=== PATIENT | male | born 1975 | race Caucasian/White ===

== ENCOUNTER 2020-05-27 16:24 | Emergency (ER) | payer BC, SELFPAY ==
--- NOTE | ~2020-05-27 | XR_ITS ---
XR elbow RT min 3V DATE: 05/27/2020 16:53 INDICATION: Right elbow pain. No known injury. TECHNIQUE: 4 views COMPARISON: None FINDINGS: No fracture or dislocation or joint effusion. No periosteal reaction or bone destruction. IMPRESSION: Negative Reviewed, dictated and finalized at location B. IMPRESSION: Negative
[2020-05-27 16:30] VITALS: BP 167/100; PULSE 85; RESP 20; TEMP 36.6; O2SAT 99
--- NOTE | 2020-05-27 16:42 | ED.GENADULT ---
HPI - General Adult General Chief complaint: Extremity Injury, Upper Stated complaint: rt elbow pain Time Seen by Provider: 05/27/20 16:42 Source: patient Mode of arrival: ambulatory Limitations: no limitations History of Present Illness HPI narrative: 44-year-old male patient presents to the [facility] with complaints of right elbow pain for the past 2 weeks. Patient states he does not remember any specific injury to the elbow but states that he has been doing a lot of pushing pulling exercises at home including push mowing the grass, turning the wheel on the lawn more, shifting the van and using a mouse daily that seems to aggravate the right elbow. 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 Patient states he has taken ibuprofen a couple of times as well as iced it to help with the pain at times. Patient states he thought it would have gone away by now and is concerned because he continues to have pain. Related Data Allergies Allergy/AdvReac Type Severity Reaction Status Date / Time amoxicillin [From Amoxil] AdvReac Mild Rash Verified 05/27/20 16:40 Review of Systems Review of Systems: Narrative: CONSTITUTIONAL: Denies fever, chills, or sweats. EYES: Denies visual changes, redness, or discharge. ENT: Denies rhinorrhea, congestion, sore throat, or otalgia. CARDIOVASCULAR: Denies chest pain, palpitations, or edema. RESPIRATORY: Denies cough or dyspnea. GASTROINTESTINAL: Denies abdominal pain, nausea, vomiting, or diarrhea. GENITOURINARY: Denies dysuria or hematuria. SKIN: Denies rash or itching. MUSCULOSKELETAL: Denies back pain, joint pain, or myalgia. Positive right elbow pain x2 weeks NEUROLOGIC: Denies headache, numbness, or weakness. PSYCHIATRIC: Denies anxiety or depression. [facility] Past Medical History Medical History Hernia Obesity Vertigo Surgical History Surgical History History of adenoidectomy Hx of tympanostomy tubes No pertinent past surgical history Family History Family History Father Family history of liver disease Family history of hepatitis Social History Social History (Reviewed 05/27/20 @ 16:42 by GABRIEL Oconnor Smoking status: Never smoker Second hand tobacco smoke exposure: No Smoking end date: 08/30/02 Alcohol intake: current Substance use: never Substance use type: does not use Gender identity (if verbalized by the patient): Male Comments At the time of my signature I agree with nursing past medical history, surgical, social, and family history. There is no relevant family history pertinent to the presenting complaint. Exam Narrative: Exam Narrative: GENERAL: Well-appearing, well-nourished, and in no acute distress. HEAD: Normocephalic, atraumatic. EYES: PERRLA and EOMI. ENT: Nares clear, no rhinorrhea or epistaxis. Mucous membranes moist. NECK: Supple. No lymphadenopathy CHEST: Clear to auscultation. No respiratory distress. HEART: Regular rate and rhythm. No murmur heard. Normal peripheral pulses. ABDOMEN: Soft, nontender, nondistended, normal active bowel sounds. EXTREMITIES: The R elbow is without obvious asymmetry or deformity when compared to the L elbow. No obvious surface trauma, ecchymosis or soft tissue swelling. bony tenderness to palpation of the lateral and medial epicondyle, olecranon, no tenderness over the radial head. No epicondylar or axillary lymphadenopathy. Normal flexion, extension, pain with supination and pronation. Normal muscle strength but does complain of pain with hand grasp to the right elbow. Intact motor and sensation of ulnar, median, and radial nerves. SKIN: Warm, dry, no rash. NEURO: No focal deficits. Alert and oriented x3. Course Reevaluation(s) Reevaluation #1: Reevaluated patient after x-ray had resulted. Discussed with him that his x-ray is negative
== END 2020-05-27 17:04 | disposition home or self-care (01) ==
PROVIDERS: Emergency Provider Nurse Practitioner Family; PCP Family Medicine
DX: M77.9 Enthesopathy, unspecified (principal)
CPT/HCPCS: 73080; 99213; G0463

== ENCOUNTER 2021-02-02 13:07 | Emergency (ER) | payer BC, SELFPAY ==
--- NOTE | ~2021-02-02 | XR_ITS ---
EXAMINATION: XR foot RT min 3V EXAM DATE: 02/02/2021 13:37 INDICATION: Right foot pain laterally, 5th toe, dist 5th metatarsal. Initial encounter. TECHNIQUE: Right foot dorsoplantar, lateral and oblique projections obtained and reviewed. There is no prior study for comparison. FINDINGS: There is acute closed posttraumatic fracture of the right 5th proximal phalanx with about 2 mm displacement. There is overlying soft tissue swelling. 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 IMPRESSION: Right 5th proximal phalangeal shaft fracture. Reviewed, dictated and finalized at location A.
--- NOTE | 2021-02-02 13:15 | ED.LOWEXIN ---
HPI - Extremity Injury (Lower) General Chief Complaint: Extremity Injury, Lower Stated Complaint: INJURED R TOE Time Seen by Provider: 02/02/21 13:15 Source: patient and RN notes reviewed History of Present Illness HPI Narrative: Patient is a 45-year-old male who presents the urgent care with complaints of pain to the right little toe. Patient states that earlier prior to arrival he slammed a cart wheel into his shoe while attempting to stretch his tailgate. Patient states the cart was not full and he was wearing a tennis shoe. Patient states it only hurts when he moves the toe. Denies of any pain to the right foot. Denies of any pain with weightbearing. Patient has used ice to the area but has not taken anything [id number] for his pain. No other acute complaints or injuries. No acute distress noted. Patient aware of the plan of care. Some parts of this dictation were generated by voice recognition software and may contain typographical and/or grammatical inaccuracies. Related Data Home Medications Medication Instructions Recorded Confirmed fluticasone propionate 50 1 spray INTRANASAL DAILY PRN 09/23/20 09/23/20 mcg/actuation nasal spray,suspension Claritin 02/02/21 02/02/21 Allergies Allergy/AdvReac Type Severity Reaction Status Date / Time amoxicillin [From Amoxil] AdvReac Mild Rash Verified 02/02/21 13:27 Review of Systems Review of Systems: Narrative: CONSTITUTIONAL: Denies fever, chills, or sweats. EYES: Denies visual changes, redness, or discharge. ENT: Denies rhinorrhea, congestion, sore throat, or otalgia. CARDIOVASCULAR: Denies chest pain, palpitations, or edema. RESPIRATORY: Denies cough or dyspnea. GASTROINTESTINAL: Denies abdominal pain, nausea, vomiting, or diarrhea. GENITOURINARY: Denies dysuria or hematuria. SKIN: Denies rash or itching. MUSCULOSKELETAL: Reports of pain and bruising to the fifth digit of the right foot NEUROLOGIC: Denies headache, numbness, or weakness. All other systems reviewed are negative, except as documented in HPI. [facility] Past Medical History Medical History Hernia Obesity Seborrheic dermatitis Vertigo Surgical History Surgical History History of adenoidectomy Hx of tympanostomy tubes No pertinent past surgical history Family History Family History Father Family history of liver disease Family history of hepatitis Social History Social History Smoking status: Former smoker (Quit February 2004) Second hand tobacco smoke exposure: No Smoking end date: 08/30/02 Alcohol intake: current Substance use: never Substance use type: does not use Gender identity (if verbalized by the patient): Male Comments At the time of my signature, I reviewed and agree with the nursing past medical, surgical, social, and family history. There is no relevant family history pertinent to the patient complaint. Exam Narrative: Exam Narrative: GENERAL: This is a well-nourished, well-developed patient, in no apparent distress. HEAD: normocephalic, atraumatic. EYES: PERRL. Sclera clear/white. Vision is grossly intact. EARS: External ears normal NOSE: External nose normal with no obvious nasal discharge, nares without redness, no rhinorrhea. THROAT: Mucous membranes moist NECK: Neck supple CARDIOVASCULAR: Regular rate and rhythm without murmurs, gallops, or rubs. RESPIRATORY: Clear to auscultation. Breath sounds equal bilaterally. No wheezes, rales, or rhonchi. SKIN: warm, intact with no suspicious lesions or rash, good texture and turgor. NEURO: awake, alert, and oriented to person, place and time. There were no obvious focal neurologic abnormalities. EXTREMITIES: Mild area of ecchymosis noted to the medial aspect of the fifth digit of the
[2021-02-02 13:24] VITALS: BP 154/88; PULSE 78; RESP 16; TEMP 36.8; O2SAT 98
== END 2021-02-02 13:55 | disposition home or self-care (01) ==
PROVIDERS: Emergency Provider Nurse Practitioner Family
DX: S92.514A Nondisplaced fracture of proximal phalanx of right lesser toe(s), initial encounter for closed fracture (principal); W22.8XXA Striking against or struck by other objects, initial encounter; Z87.891 Personal history of nicotine dependence
CPT/HCPCS: 73630; 99214; G0463

== ENCOUNTER → 2022-06-19 14:36 | Outpatient (CLI) | payer BC, SELFPAY ==
--- NOTE | ~2022-06-19 | XR_ITS ---
EXAMINATION: XR abdomen obstructive series DATE: 06/19/2022 15:11 INDICATION: Abdominal pain TECHNIQUE: Supine and upright views of the abdomen. FINDINGS: No prior studies for comparison. The visualized lung parenchyma is normal.. There is a nonobstructive bowel gas pattern. Gas and stool are seen throughout the colon to the level of the rectum. There is no free air. Moderate colonic fe nazanin loading. IMPRESSION: 1. No acute abdominal abnormality. Reviewed, dictated and finalized at location A.
== END ==
PROVIDERS: PCP Family Medicine; Visit Provider Family Medicine
DX: R10.9 Unspecified abdominal pain (principal)
CPT/HCPCS: 74019

== ENCOUNTER 2022-06-24 06:55 | Outpatient (CLI) | payer BC, SELFPAY ==
--- NOTE | ~2022-06-24 | CT_ITS ---
EXAMINATION: CT abdomen pelvis w con DATE: 06/24/2022 07:19 INDICATION: Upper abdominal discomfort. TECHNIQUE: Computed tomography (CT) of the abdomen and pelvis was performed with 100 mL Omnipaque 350 intravenous contrast. Automated exposure control and iterative reconstruction technique were employe d. The dose-length product was 727.97 mGy-cm. COMPARISON: None. FINDINGS: The visualized portions of the bases are clear without pneumonia or pleural effusion. The h eart size is normal. No pericardial effusion. The liver, gallbladder, spleen, pancreas, adrenal gland s, and kidneys are normal. The prostate is mildly enlarged. There are no dilated loops of bowel. The appendix is normal. There are no pathologically enlarged lymph nodes. There is no free intraperitonea l fluid. There is mild thoracolumbar spondylosis. IMPRESSION: 1. No etiology for the patient's symptoms. Reviewed, dictated and finalized at location A.
== END 2022-06-24 06:56 | disposition home or self-care (01) ==
PROVIDERS: PCP Family Medicine; Visit Provider Family Medicine
DX: R10.9 Unspecified abdominal pain (principal)
CPT/HCPCS: 74177; Q9967

== ENCOUNTER 2023-01-06 06:47 | Day surgery (SDC) | payer BC, SELFPAY ==
[2022-12-16 08:56] VITALS: BMI 29.6
[2023-01-06 10:20] VITALS: BP 114/88; PULSE 70; RESP 16; TEMP 36.6; O2SAT 100; BMI 29.9
[2023-01-06] MEDS: LACTATED RINGERS 1,000 ML 150 ML IV CONT (10:34)
--- NOTE | 2023-01-06 11:06 | WPDANESEPPF ---
Anes - Initial Pre Proc Eval Procedure: Operation Date: 01/06/23 11:30 Proposed Procedures p Screening Colonoscopy - Hai Lux MD Date/Time: 01/06/23 11:06 Surgeon: Hai Lux MD Pre Op Diagnosis: neoplasm screening Patient Data Age: 47 Gender: M Height: 1.75 m Weight: 92 kg Last Vital Signs Temp 97.9 F 01/06/23 10:20 Pulse 70 01/06/23 10:20 Resp 16 01/06/23 10:20 BP 114/88 01/06/23 10:20 Pulse Ox 100 01/06/23 10:20 O2 Del Method Room Air 01/06/23 10:20 Allergies Allergy/AdvReac Type Severity Reaction Status Date / Time No Known Allergies Allergy Verified 01/06/23 10:18 Home Medications Medication Instructions Recorded Confirmed Type fluticasone propionate 50 1 spray intranasal DAILY PRN nasal 09/23/20 01/06/23 History mcg/actuation nasal congestion spray,suspension (Allergy Relief (fluticasone)) vitamin B complex (B 1 tablet PO DAILY 09/26/21 01/06/23 History Complex-Vitamin B12 tablet) cetirizine 10 mg tablet (Zyrtec) 10 mg PO DAILY PRN Allergic 09/30/22 01/06/23 History Symptoms cholecalciferol (vitamin D3) 25 50 mcg PO DAILY 09/30/22 01/06/23 History mcg (1,000 unit) capsule Patient hx anesthesia problems: none Family hx anesthesia problems: none Results Review: All pre-operative results and documents have been reviewed as part of the pre-operative evaluation. [facility] Past Medical History Medical History Hallux rigidus of right foot Hernia Obesity Plantar fasciitis, right Seborrheic dermatitis Toe fracture, right Vertigo Vision changes Surgical History Surgical History History of adenoidectomy Hx of tympanostomy tubes No pertinent past surgical history Family History Family History Father Family history of liver disease Family history of hepatitis Type 2 diabetes mellitus Trigeminal neuralgia Mother Hypertension Grandparent Arteriosclerosis Dementia Grandparent ALS (amyotrophic lateral sclerosis) Social History Social History (Updated 09/30/22 @ 08:36 by Maribell Queen [facility]) Smoking status: Former smoker Tobacco type: cigarettes Second hand tobacco smoke exposure: No Additional smoking assessment comments: Quit smoking 02/2004 Alcohol intake: current Alcohol use details: socially, weekends Substance use: never Substance use type: does not use Lack of Transportation: No Lack of Food: Never True Current Housing: I Have Housing Concerned About Future Housing: No Difficulty Paying Gas/Electric Bills: No Difficulty Paying for Meds: No Currently Unemployed: No Education: Bachelor's Degree Difficulty w/ Childcare or Family Care: No Living arrangements: with family Occupation/Education: occupation Additional occupation/education comments: P[employer] at [employer]. Gender identity (if verbalized by the patient): Male Spiritual care concerns: No Anes - Eval Final PreProcedure Day of Procedure 01/06/23 11:06 Patient weight: obese Heart: regular rate and rhythm Lungs: clear to auscultation Airway: Mallampati scale class II Neurological: alert and oriented Last oral intake: >/= 8 hours ASA classification: II Emergent: no Anesthetic plan: proceed Anesthesia type and monitoring: general GIVS and standard monitoring Results Review: All pre-operative results and documents have been reviewed as part of the pre-operative evaluation. Informed Consent: The patient's anesthetic plan and its attendant risks and benefits were discussed with the patient/family/POA. Questions were solicited and answers provided to the satisfaction of the patient/family/POA.
--- NOTE | 2023-01-06 11:10 | PM.HPGS ---
History of Present Illness History of Present Illness Consent: Risks, benefits, and alternatives have been discussed and questions answered. Patient agrees to proceed with procedure. Chief complaint: neoplasm screening Narrative: Jose R Macario is a 47 year old male here for first screening colonoscopy Review of Systems Constitutional: Constitutional: Denies headache(s) and Denies weakness Eyes: Eyes: Denies blurry vision ENT: Reports Normal hearing present, Denies headache(s) and Denies neck pain Cardiovascular: Cardiovascular: Denies chest pain and Denies dyspnea Respiratory: Respiratory: Denies dyspnea Gastrointestinal: Gastrointestinal: Reports no additional gastrointestinal complaints Genitourinary: Genitourinary: Denies dysuria Musculoskeletal: Musculoskeletal: Denies neck pain Integumentary/Breasts: Skin/Breast: Denies dry skin Neurologic: Reports Normal hearing present, Denies headache(s) and Denies weakness Psychiatric: Psychiatric: Denies anxiety Endocrine: Endocrine: Denies change in body appearance Hematologic/Lymphatic: Hematologic/Lymphatic: Denies easy bleeding Allergic/Immunologic: Allergic/Immunologic: Denies urticaria [facility] Past Medical History Medical History (Updated 01/06/23 @ 11:10 by Hai Lux MD) Colon cancer screening Hallux rigidus of right foot Hernia Obesity Plantar fasciitis, right Seborrheic dermatitis Toe fracture, right Vertigo Vision changes Surgical History Surgical History History of adenoidectomy Hx of tympanostomy tubes No pertinent past surgical history Family History Family History Father Family history of liver disease Family history of hepatitis Type 2 diabetes mellitus Trigeminal neuralgia Mother Hypertension Grandparent Arteriosclerosis Dementia Grandparent ALS (amyotrophic lateral sclerosis) Social History Social History (Updated 09/30/22 @ 08:36 by Maribell Queen CMA) Smoking status: Former smoker Tobacco type: cigarettes Second hand tobacco smoke exposure: No Additional smoking assessment comments: Quit smoking 02/2004 Alcohol intake: current Alcohol use details: socially, weekends Substance use: never Substance use type: does not use Lack of Transportation: No Lack of Food: Never True Current Housing: I Have Housing Concerned About Future Housing: No Difficulty Paying Gas/Electric Bills: No Difficulty Paying for Meds: No Currently Unemployed: No Education: Bachelor's Degree Difficulty w/ Childcare or Family Care: No Living arrangements: with family Occupation/Education: occupation 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 Gender identity (if verbalized by the patient): Male Spiritual care concerns: No Meds Home Medications and Allergies Home Medications Medication Instructions Recorded Confirmed Type fluticasone propionate 50 1 spray intranasal DAILY PRN nasal 09/23/20 01/06/23 History mcg/actuation nasal congestion spray,suspension (Allergy Relief (fluticasone)) vitamin B complex (B 1 tablet PO DAILY 09/26/21 01/06/23 History Complex-Vitamin B12 tablet) cetirizine 10 mg tablet (Zyrtec) 10 mg PO DAILY PRN Allergic 09/30/22 01/06/23 History Symptoms cholecalciferol (vitamin D3) 25 50 mcg PO DAILY 09/30/22 01/06/23 History mcg (1,000 unit) capsule Allergies Allergy/AdvReac Type Severity Reaction Status Date / Time No Known Allergies Allergy Verified 01/06/23 10:18 Vital Signs Vital Signs - 24 hr 01/06/23 10:20 Temperature 97.9 F Pulse Rate 70 Respiratory Rate 16 Blood Pressure 114/88 Pulse Oximetry 100 Oxygen Delivery Room Air Exam Const: General: comfortable and no acute distress HENMT: Face/Nose/Sinus: Normal nares present Eyes: General: appearanc
[2023-01-06 11:32] VITALS: BP 107/67; PULSE 70; RESP 22; O2SAT 97
[2023-01-06 11:42] VITALS: BP 106/68; PULSE 67; RESP 20; O2SAT 98
[2023-01-06 11:52] VITALS: BP 121/79; PULSE 60; RESP 19; O2SAT 97
== END 2023-01-06 11:58 | disposition home or self-care (01) ==
PROVIDERS: PCP Family Medicine; Visit Provider Internal Medicine Gastroenterology
PROC: 0DJD8ZZ Inspection of Lower Intestinal Tract, Via Natural or Artificial Opening Endoscopic (ICD-10-PCS; CPT 45378; principal; 2023-01-06 11:30)
DX: Z12.11 Encounter for screening for malignant neoplasm of colon (principal); D12.4 Benign neoplasm of descending colon; K64.8 Other hemorrhoids; E66.9 Obesity, unspecified; Z68.30 Body mass index [BMI] 30.0-30.9, adult; Z87.891 Personal history of nicotine dependence
CPT/HCPCS: 45385; 88305; J2704; J7120